=== PATIENT | male | born 1955 | race African-American/Black ===

== ENCOUNTER 2017-03-12 12:28 | Emergency (ER) | payer MEDICAID, MEDICARE ==
[~2017-03-12] VITALS: Ht 175.3 cm; Wt 85.0 kg
[~2017-03-12 12:28] MED LIST: ASPI325T2 PO; ATOR20TA65 PO; BENA1TAB3 PO; CLON0.3T PO; METO100T5 PO
[2017-03-12] MEDS ORDERED: KETOROLAC 60MG/2ML VIAL IM ONE (14:15)
[2017-03-12] MEDS ORDERED: HYDROCODONE/APAP 7.5/325MG 1 TAB TABLET PO ONE (15:15)
[2017-03-12 17:23] VITALS: BP 146/71
== END 2017-03-12 17:33 | disposition home or self-care (01) ==
LOC: ER 14:41
DX: M10.9 Gout, unspecified (principal); Z88.6 Allergy status to analgesic agent; Z79.899 Other long term (current) drug therapy
CPT/HCPCS: 73080; 73630; 96372; 99284; J1885; Z7610

== ENCOUNTER 2018-02-10 08:45 | Emergency (ER) | payer MEDICARE ==
[~2018-02-10] VITALS: Ht 175.3 cm; Wt 73.0 kg
[~2018-02-10 08:45] MED LIST changes: +ASPI-986 PO; -ASPI325T2 PO; +METO100T16 PO; -METO100T5 PO
[2018-02-10 09:07] VITALS: BP 163/99
[2018-02-10] MEDS ORDERED: ACETAMINOPHEN 325MG TABLET PO ONE (11:15)
[2018-02-10] MEDS: VISCOUS LIDOCAINE 2% 15 ML UDC MM PRN ×2 (11:21→11:45)
[2018-02-10] MEDS ORDERED: ACETAMINOPHEN 500MG TABLET PO ONE (11:30)
== END 2018-02-10 11:56 | disposition home or self-care (01) ==
LOC: ER 09:37
DX: H66.91 Otitis media, unspecified, right ear (principal); I10 Essential (primary) hypertension; I25.2 Old myocardial infarction; Z79.82 Long term (current) use of aspirin
CPT/HCPCS: 99283

== ENCOUNTER 2021-03-24 10:23 | Emergency (ER) | payer MEDICARE ==
[~2021-03-24] VITALS: Ht 175.3 cm; Wt 82.0 kg
[2021-03-24] MEDS ORDERED: IBUPROFEN 400MG TABLET PO ONE (11:45)
[2021-03-24] MEDS ORDERED: ACETAMINOPHEN 325MG TABLET PO ONE (11:45)
[2021-03-24] MEDS ORDERED: METOCLOPRAMIDE HCL 10MG TABLET PO ONE (11:45)
[2021-03-24] MEDS ORDERED: ACYC200C PO (11:48)
[2021-03-24] MEDS ORDERED: OXYC-100 PO (11:48)
[2021-03-24 11:52] VITALS: BP 104/75
== END 2021-03-24 13:09 | disposition home or self-care (01) ==
LOC: ER 10:23
DX: B02.9 Zoster without complications (principal); I11.0 Hypertensive heart disease with heart failure; I25.2 Old myocardial infarction; Z85.9 Personal history of malignant neoplasm, unspecified; Z79.82 Long term (current) use of aspirin; Z79.899 Other long term (current) drug therapy
CPT/HCPCS: 99284; J8597